=== PATIENT | female | born 1990 ===

== ENCOUNTER 2018-02-25 00:03 | Emergency (ER) | payer OTHER ==
--- NOTE | 2018-02-25 01:11 | ED PDOC ---
HPI: Chest Pain Time Seen by Provider: 02/25/18 00:38 Chief Complaint (Nursing): Chest Pain Chief Complaint (Provider): Chest Pain History Per: Patient History/Exam Limitations: no limitations Onset/Duration Of Symptoms: Hrs (x1) Current Symptoms Are (Timing): Better Additional Complaint(s): 27 year old female presents with upper abdominal and chest pain radiating to her back, onset of 1 hour, prior to arrival. Patient reports drinking water when symptoms began, stating that she felt "gas bubbles were stuck". She denies fever, change in bowel movements or urinary complaints. Upon arrival to ED, she reports feeling better. PMD: Dr. Luis Alfredo Nelson Past Medical History Reviewed: Historical Data, Nursing Documentation, Vital Signs Vital Signs: Last Vital Signs Temp 98.5 F 02/25/18 03:50 Pulse 84 02/25/18 03:50 Resp 18 02/25/18 03:50 BP 100/51 L 02/25/18 03:50 Pulse Ox 99 02/25/18 03:50 - Medical History PMH: No Chronic Diseases - Surgical History Other surgeries: tummy tuck - Family History Family History: States: Unknown Family Hx - Social History Current smoker - smoking cessation education provided: No Ex-Smoker (has not smoked in the last 12 months): No Alcohol: Social Drugs: Denies - Home Medications Home Medications: Ambulatory Orders Medication Instructions Recorded Famotidine [Pepcid] 20 mg PO BID #20 tab 02/25/18 - Allergies Allergies/Adverse Reactions: Allergies Allergy/AdvReac Type Severity Reaction Status Date / Time shellfish derived Allergy ANAPHYLAXIS Verified 02/25/18 00:32 Review of Systems ROS Statement: Except As Marked, All Systems Reviewed And Found Negative Constitutional: Negative for: Fever Cardiovascular: Positive for: Chest Pain Gastrointestinal: Positive for: Abdominal Pain (epigastric). Negative for: Diarrhea, Constipation Genitourinary Female: Negative for: Dysuria, Hematuria Musculoskeletal: Positive for: Back Pain Physical Exam - Reviewed Nursing Documentation Reviewed: Yes Vital Signs Reviewed: Yes - Physical Exam Appears: Positive for: Well, Non-toxic, No Acute Distress Head Exam: Positive for: ATRAUMATIC, NORMAL INSPECTION, NORMOCEPHALIC Skin: Positive for: Normal Color Eye Exam: Positive for: EOMI, Normal appearance, PERRL ENT: Positive for: Normal ENT Inspection Neck: Positive for: Normal Cardiovascular/Chest: Positive for: Regular Rate, Rhythm, Chest Non Tender Respiratory: Positive for: Normal Breath Sounds Gastrointestinal/Abdominal: Positive for: Normal Exam, Soft. Negative for: Tenderness Back: Positive for: Normal Inspection. Negative for: L CVA Tenderness, R CVA Tenderness Extremity: Positive for: Normal ROM (upper and lower) Neurologic/Psych: Positive for: Alert, Oriented - ECG O2 Sat by Pulse Oximetry: 98 Medical Decision Making Medical Decision Making: A/P: 27 year old female, history of tummy tuck, presents with epigastric pain. No concern for complication from surgery nor SBO. Patient suffering from gas, most likely gastritis. GI cocktail ordered. --Lidocaine 15 ml PO --Maalox 30 ml PO --Pepcid 20 mg PO 330AM Patient is feeling much better. Had mild urticarial rash as well that responded to benadry. Tolerating food in ED. Advised her to followup with PMD. Well appearing upon discharge. Scribe Attestation: Documented by Ximena Guerrero, acting as a scribe for Al Tate MD. Provider Scribe Attestation: All medical record entries made by the Scribe were at my direction and personally dictated by me. I have reviewed the chart and agree that the record accurately reflects my personal performance of the history, physical exam, medical decision making, and the department course for this patient. I have also personally directed, reviewed, and agree with the discharge instructions and disposition. Disposition - Clinical Impression Clinical Impression: Gastritis - Disposition Referrals: Ngoc Singh MD [Family Provider] - Disposition: Routine/Home Disposition Time: 03:30 Condition: STABLE Prescriptions: Famotidine [Pepcid] 20 mg PO BID #20 tab Instructions: Gastritis Forms: [employer] (Pashto)
[2018-02-25] MEDS ORDERED: Alum-Mag Hydrox-Simethicone Susp (30 mL) PO STA (01:21)
[2018-02-25] MEDS ORDERED: Alum-Mag Hydrox-Simethicone Susp (30 mL) ONE (01:34)
[2018-02-25 03:52] VITALS: BP 100/51; PULSE 84; RESP 18; TEMP 98.5
[2018-02-25 06:22] VITALS: O2SAT 98
== END 2018-02-25 03:56 | disposition home or self-care (01) ==
LOC: H.ER 00:03
DX: K29.70 Gastritis, unspecified, without bleeding (principal)